=== PATIENT | female | born 1955 | race Caucasian/White ===

== ENCOUNTER → 2024-09-03 11:57 | Outpatient (REF) | payer MEDICARE, OTHER, SELFPAY | LOC: HWWDC 11:57 | PROVIDERS: ATTENDING PHYSICIAN Family Medicine | DX: Z12.31 Encounter for screening mammogram for malignant neoplasm of breast (principal) | CPT/HCPCS: 77063; 77067 ==

== ENCOUNTER → 2025-05-26 09:49 | Outpatient (REF) | payer MEDICARE, OTHER, SELFPAY | LOC: PAVMRI 09:49 | PROVIDERS: ATTENDING PHYSICIAN Physician Assistant | DX: M25.562 Pain in left knee (principal) | CPT/HCPCS: 73721 ==

== ENCOUNTER 2025-06-06 06:25 | Day surgery (SDC) | payer MEDICARE, OTHER, SELFPAY ==
[2025-06-06] VITALS (7 sets, daily range): BP systolic 100–134; BP diastolic 58–79; BMI 29.0
[2025-06-06] MEDS: NORMOSOL-R/PLASMALYTE-A 1000 IV (11:45)
[2025-06-06] MEDS: CELEBREX 200 MG PO (11:58)
[2025-06-06] MEDS: TYLENOL 1000 MG PO (11:59)
== END 2025-06-06 16:41 | disposition home or self-care (01) ==
LOC: SDS 06:25
PROVIDERS: ATTENDING PHYSICIAN Orthopaedic Surgery
DX: S83.282A Other tear of lateral meniscus, current injury, left knee, initial encounter (principal); X58.XXXA Exposure to other specified factors, initial encounter; M94.262 Chondromalacia, left knee
CPT/HCPCS: 29881

== ENCOUNTER 2025-06-09 20:48 | Inpatient (IN) | payer MEDICARE, OTHER, SELFPAY ==
[2025-06-09] VITALS (11 sets, daily range): BP systolic 131–164; BP diastolic 71–88; BMI 29.8; BMI 28.8
[2025-06-09 13:22] LABS: Hematocrit 37.6 % (37.0-47.0); Hemoglobin 12.5 g/dL (12.0-16.0); Mean Corp Hgb Conc. 33.2 g/dL (33.0-37.0); Mean Corpuscular Volume 91.7 fL (81.0-99.0); Nucleated Red Blood Cells % 0 %; Platelet Count 203 10^3/uL (130-400); Red Cell Dist. Width 13.0 % (11.5-14.5)
[2025-06-09 13:46] LABS: ALT (SGPT) 350 U/L (0-35); AST (SGOT) 310 U/L (14-36); Albumin 4.0 g/dl (3.5-5.0); Alkaline Phosphatase 121 U/L (38-126); Blood Urea Nitrogen 16 mg/dl (7-17); Calcium 9.4 mg/dl (8.4-10.2); Carbon Dioxide 28 mmol/L (22-30); Chloride 104 mmol/L (98-107); Estimated Creatinine Clearance 70 ml/min; Glucose 95 mg/dl (70-99); Lipase 45 U/L (23-300); Potassium 3.7 mmol/L (3.5-5.1); Sodium 139 mmol/L (135-145); Total Protein 6.6 g/dl (6.3-8.2); eGFR > 60.00
--- NOTE | 2025-06-09 13:50 | ED.GENMED ---
History of Present Illness
<Rod Airas PA-C - Last Filed: 06/10/25 11:01>
General
Chief Complaint: Breathing Problem
Time Seen by Provider: 06/09/25 12:34
History of Present Illness
History of Present Illness:
69-year-old female presents the emergency department for evaluation of abdominal distention and pain that increases with deep breathing for the past day. She states she underwent left knee arthroscopic surgery on Monday and feels as though the
symptoms have progressed since that time. She also underwent a sigmoid endoscopy 6 days ago but did not have any abdominal pain thereafter. She denies any fevers or chills. The abdominal pain is generalized but worse in the upper abdomen with
deep breathing. She feels those short of breath. No leg swelling or calf cramping.
Review of Systems
<Rod Arias PA-C - Last Filed: 06/10/25 11:01>
Review of Systems
Allergies reviewed?: Yes
All Other Systems: ROS reviewed and negative except as documented in HPI and ROS
Phy Exam
<Rod Arias PA-C - Last Filed: 06/10/25 11:01>
Physical Exam
Physical Exam:
GEN: Well appearing, NAD, WDWN
HEENT: Oral mucosa moist, no scleral icterus
Cardiac: Regular rate
Lung: No respiratory distress, no tachypnea, lungs clear to auscultation bilaterally
Abdomen: Protuberant, generally tender worse in the upper abdominal ruiz, no rigidity
MSK: No gross deformity or injuries
Skin: Good color, no pallor or jaundice, no rashes
Neuro: AO x3, moves all extremities freely
Psych: Calm, cooperative
Scores
<JONA Cornell Last Filed: 06/09/25 19:41>
Heart Failure Risk
Heart Failure Risk Score: Not Applicable
Course
<JONA Melo Last Filed: 06/10/25 11:01>
Orders/Labs/Results
Orders:
Orders
06/09/25 12:13
Electrocardiogram (*1) Urgent
Reason for Study: Shortness of Breath
EKG- Treatment ONCE
06/09/25 13:02
CR Chest - 2 Views Urgent
Comment:
Reason For Exam: SOB
06/09/25 13:11
Complete Blood Count/With Diff Urgent
Comprehensive Metabolic Panel Urgent
Lactic Acid Urgent
Lipase Urgent
06/09/25 14:20
CT Pe/abd/pel W Urgent
Comment:
Reason For Exam: pleuritic chest/abd pain, pleural effusion
06/09/25 Dinner
NPO
Allow oral meds: Yes
Allow clear liquids: No
NPO with Ice Chips: No
06/09/25 16:49
US Abdomen Complete/Upper Urgent
Comment:
Reason For Exam: elevated LFTs;
06/09/25 17:01
0.9% Sodium Chloride 500 ml [Nss] 500 ml IV BOLUS
HYDROmorphone [Dilaudid] 1 mg IV NOW STA
06/09/25 17:40
Acetaminophen [Tylenol] 650 mg PO NOW STA
06/09/25 20:07
Ampicillin/Sulbactam 3 G [Unasyn] 3 gm 0.9% Sodium Chloride 100 ml [Nss] 100 ml IV NOW
06/09/25 20:21
Admit/Transfer Patient As Directed
Co-Sign Provider:
Level of Care: Inpatient admission
Assign to:: Medical/Surgical
Physician / Group: dion rosado
Diagnosis: acute transaminitis conc retained stone vs choleycystitis, mild colitis
Reason for Hospitalization: acute transaminitis conc retained stone vs choleycystitis, mild colitis
Expected length of stay greater than two midnights?: Yes
ELOS- Estimated Length of Stay in days: 3
I certify the patient meets the requirements for IP care: Yes
06/09/25 20:22
Code Status As Directed
Resuscitation Status: Full Code
06/09/25 20:25
PRN Pain Medication Management As Directed
May give lesser potent ordered pain med per pt: Yes
preference::
Protocol:: Medication orders for pain may be administered in a
manner that supports deferring to patient preference
when the pt is:
- Requesting an ordered lesser potent pain medication.
Least to most potent pain medications are defined
as: acetaminophen < NSAID < tramadol < opioids
(morphine, oxycodone, hydromorphone).
- Requesting a lesser dose of the same medication IF
ORDERED.
- Requesting a less intrusive route of administration
if both routes are prescribed by the provider (PO <
IV).
06/09/25 20:26
SURGICAL CONSULT Routine
Consulting Provider: Gino Angel
Was physician already notified: Yes
Reason for consult: acute transminitis biliary sludge
06/09/25 21:54
0.9% Sodium Chloride 1000 ml [Nss] 1,000 ml IV 80 mls/hr
Acetaminophen [Tylenol] 650 mg PO Q6HPRN PRN
HYDROmorphone [Dilaudid] 1 mg IV Q4HPRN PRN
Ondansetron Injectable [Zofran] 4 mg IV Q6HPRN PRN
06/09/25 21:54
Activity As Directed
Activity Level: As Tolerated
Vital Signs As Directed
Frequency: Per unit guidelines
DX Deep Vein Thrombosis Video Routine
06/09/25 22:00
Rosuvastatin Calcium [Crestor] 10 mg PO HS
06/10/25 02:00
Piperacillin/Tazo 3.375 Gram [Zosyn] 3.375 gram in 50 ml IV Q6H
06/10/25 06:00
MR Mrcp Without IN AM
Comment: incude MRI abdomen
Reason For Exam: acute transmintitis
OK for patient to be off Cardiac Monitoring for MRI: Yes
Recent pill cam endoscopy?: No
Pacemaker/Defibrillator?: No
Levothyroxine [Synthroid] 75 mcg PO DAILY @ 0600
06/10/25 06:06
Cardiovascular Evaluation IN AM
Complete Blood Count/With Diff IN AM
Comprehensive Metabolic Panel IN AM
06/10/25 08:00
Heparin 5,000 units SC Q12
Lisinopril [Zestril] 20 mg PO DAILY
Pantoprazole [Protonix IV] 40 mg IV DAILY
06/11/25 06:00
Complete Blood Count/With Diff IN AM
Comprehensive Metabolic Panel IN AM
06/12/25 06:00
Complete Blood Count/With Diff IN AM
Comprehensive Metabolic Panel IN AM
Abnormal Lab Results
06/09/25
13:11
RBC 4.10 L 10^6/uL
(4.20-5.40)
Absolute Lymphs (auto) 1.0 L 10^3/uL
(1.2-3.4)
Neutrophils % 77.7 H %
(42.2-75.2)
Lymphocytes % 16.4 L %
(20.5-51.1)
AST 310 H U/L
(14-36)
ALT 350 H U/L
(0-35)
06/09/25 13:11
06/09/25 13:11
Vital Signs
Initial and Last Documented VS:
Initial Vital Signs
Temp Pulse Resp BP Pulse Ox
99.1 F 86 16 151/85 98
06/09/25 12:11 06/09/25 12:11 06/09/25 12:11 06/09/25 12:11 06/09/25 12:11
Last Documented Vital Signs
Temp Pulse Resp BP Pulse Ox
99.0 F 79 18 126/76 95
06/10/25 07:25 06/10/25 07:25 06/10/25 07:25 06/10/25 07:25 06/10/25 07:25
<Vesta Jimenez PA-C - Last Filed: 06/09/25 19:41>
Orders/Labs/Results
Orders:
Orders
06/09/25 12:13
Electrocardiogram (*1) Urgent
Reason for Study: Shortness of Breath
EKG- Treatment ONCE
06/09/25 13:02
CR Chest - 2 Views Urgent
Comment:
Reason For Exam: SOB
06/09/25 13:11
Complete Blood Count/With Diff Urgent
Comprehensive Metabolic Panel Urgent
Lactic Acid Urgent
Lipase Urgent
06/09/25 14:20
CT Pe/abd/pel W Urgent
Comment:
Reason For Exam: pleuritic chest/abd pain, pleural effusion
06/09/25 Dinner
NPO
Allow oral meds: Yes
Allow clear liquids: No
NPO with Ice Chips: No
06/09/25 16:49
US Abdomen Complete/Upper Urgent
Comment:
Reason For Exam: elevated LFTs;
06/09/25 17:01
0.9% Sodium Chloride 500 ml [Nss] 500 ml IV BOLUS
HYDROmorphone [Dilaudid] 1 mg IV NOW STA
06/09/25 17:40
Acetaminophen [Tylenol] 650 mg PO NOW STA
06/09/25 20:07
Ampicillin/Sulbactam 3 G [Unasyn] 3 gm 0.9% Sodium Chloride 100 ml [Nss] 100 ml IV NOW
06/09/25 20:21
Admit/Transfer Patient As Directed
Co-Sign Provider:
Level of Care: Inpatient admission
Assign to:: Medical/Surgical
Physician / Group: dion rosado
Diagnosis: acute transaminitis conc retained stone vs choleycystitis, mild colitis
Reason for Hospitalization: acute transaminitis conc retained stone vs choleycystitis, mild colitis
Expected length of stay greater than two midnights?: Yes
ELOS- Estimated Length of Stay in days: 3
I certify the patient meets the requirements for IP care: Yes
06/09/25 20:22
Code Status As Directed
Resuscitation Status: Full Code
06/09/25 20:25
PRN Pain Medication Management As Directed
May give lesser potent ordered pain med per pt: Yes
preference::
Protocol:: Medication orders for pain may be administered in a
manner that supports deferring to patient preference
when the pt is:
- Requesting an ordered lesser potent pain medication.
Least to most potent pain medications are defined
as: acetaminophen < NSAID < tramadol < opioids
(morphine, oxycodone, hydromorphone).
- Requesting a lesser dose of the same medication IF
ORDERED.
- Requesting a less intrusive route of administration
if both routes are prescribed by the provider (PO <
IV).
06/09/25 20:26
SURGICAL CONSULT Routine
Consulting Provider: Gino Angel
Was physician already notified: Yes
Reason for consult: acute transminitis biliary sludge
06/09/25 21:54
0.9% Sodium Chloride 1000 ml [Nss] 1,000 ml IV 80 mls/hr
Acetaminophen [Tylenol] 650 mg PO Q6HPRN PRN
HYDROmorphone [Dilaudid] 1 mg IV Q4HPRN PRN
Ondansetron Injectable [Zofran] 4 mg IV Q6HPRN PRN
06/09/25 21:54
Activity As Directed
Activity Level: As Tolerated
Vital Signs As Directed
Frequency: Per unit guidelines
DX Deep Vein Thrombosis Video Routine
06/09/25 22:00
Rosuvastatin Calcium [Crestor] 10 mg PO HS
06/10/25 02:00
Piperacillin/Tazo 3.375 Gram [Zosyn] 3.375 gram in 50 ml IV Q6H
06/10/25 06:00
MR Mrcp Without IN AM
Comment: incude MRI abdomen
Reason For Exam: acute transmintitis
OK for patient to be off Cardiac Monitoring for MRI: Yes
Recent pill cam endoscopy?: No
Pacemaker/Defibrillator?: No
Levothyroxine [Synthroid] 75 mcg PO DAILY @ 0600
06/10/25 06:06
Cardiovascular Evaluation IN AM
Complete Blood Count/With Diff IN AM
Comprehensive Metabolic Panel IN AM
06/10/25 08:00
Heparin 5,000 units SC Q12
Lisinopril [Zestril] 20 mg PO DAILY
Pantoprazole [Protonix IV] 40 mg IV DAILY
06/11/25 06:00
Complete Blood Count/With Diff IN AM
Comprehensive Metabolic Panel IN AM
06/12/25 06:00
Complete Blood Count/With Diff IN AM
Comprehensive Metabolic Panel IN AM
Abnormal Lab Results
06/09/25
13:11
RBC 4.10 L 10^6/uL
(4.20-5.40)
Absolute Lymphs (auto) 1.0 L 10^3/uL
(1.2-3.4)
Neutrophils % 77.7 H %
(42.2-75.2)
Lymphocytes % 16.4 L %
(20.5-51.1)
AST 310 H U/L
(14-36)
ALT 350 H U/L
(0-35)
06/09/25 13:11
06/09/25 13:11
Vital Signs
Initial and Last Documented VS:
Initial Vital Signs
Temp Pulse Resp BP Pulse Ox
99.1 F 86 16 151/85 98
06/09/25 12:11 06/09/25 12:11 06/09/25 12:11 06/09/25 12:11 06/09/25 12:11
Last Documented Vital Signs
Temp Pulse Resp BP Pulse Ox
99.0 F 79 18 126/76 95
06/10/25 07:25 06/10/25 07:25 06/10/25 07:25 06/10/25 07:25 06/10/25 07:25
<Rod Arias PA-C - Last Filed: 06/10/25 11:01>
MDM/Problems Addressed
MDM/Problems Addressed:
69-year-old female presents with generalized abdominal pain that is pleuritic in nature. She is found to have right lower lung crackles on exam prompting chest x-ray which revealed a small pleural effusion. She is also noted to have mild
transaminitis with uncertain baseline due to lack of prior labs within our system. Given multiple recent procedures resulting in her undergoing anesthesia we will rule out pulmonary embolism with CT and then obtain subsequent abdomen pelvis
follow-through to evaluate for intra-abdominal process causing her symptoms. If unremarkable would anticipate need for ultrasound to rule out cholecystitis if no other pathology is found. Will sign out to Leatha Jimenez PA-C pending imaging
<Rod Arias PA-C - Last Filed: 06/10/25 11:01>
*Pulse Oximetry
SaO2: 97
Oxygen Mode of Delivery: Room air
<Vesta Jimenez PA-C - Last Filed: 06/09/25 19:41>
*Pulse Oximetry
Patient hypoxic: no (98)
*Critical Care Note
Total Time (30-74mins, 75-104mins- exclusive of procedures): Not Applicable
<Vesta Jimenez PA-C - Last Filed: 06/09/25 19:41>
Update Note
Update Note:
1700-
Received patient in signout from [facility] pending CT scan. There was findings of mild colitis but otherwise only a small pleural effusion and no PE. I examined the patient myself and she is complaining of worsening abdominal pain specifically in the
right upper quadrant and felt warm and had a temperature of 100.3. I gave her IV pain medication and ultrasound of the abdomen suspicious for cholecystitis given her transaminitis. She does have biliary sludge without obvious cholecystitis changes
however given her ongoing pain and nausea with eating I think she should be observed overnight. Will empirically cover with IV antibiotics. She has tolerated amoxicillin in the past even though she has a penicillin allergy which was only a rash as
a child. I will try Unasyn. Patient is aware that if she has any reaction to let someone know.
Surgery Dr. angel made aware of the patient as well
ED Attending Note
<Rod Arias PA-C - Last Filed: 06/10/25 11:01>
-
Portions of this chart may have been created with voice recognition software.� Occasional wrong word or��sound alike� substitutions may have occurred due to the inherent limitations of voice recognition software.
Discharge Plan
Departure
Patient Disposition: Admit
Date of Disposition: 06/09/25
Time of Disposition: 19:01
Admit to: Med/Surg
Presentation/result/management discussed w/ accepting MD/DO: Hospitalist
Condition: Fair
Covid-19: Not Applicable
Discharge Problem:
Colitis, Biliary sludge
Interventions
Interventions:
*Risk Screen - Suicide Last Done: 06/09/25 12:13
*Neglect/Abuse Screening Last Done: 06/09/25 12:13
*ED COVID-19 Vaccine History Last Done: 06/09/25 22:50
*Nursing Disposition Last Done: 06/09/25 21:47
ED- Cardiac Assessment Last Done: 06/09/25 13:17
ED- Pulmonary Assessment Last Done: 06/09/25 13:17
Discharge Date and Time
Discharge Date/Time: 06/09/25 21:48
[2025-06-09] MEDS: NSS 500 IV (17:14)
[2025-06-09] MEDS: DILAUDID 1 MG IV ×2 (17:15→23:45)
--- NOTE | 2025-06-09 19:44 | HPS.HSE ---
Addendum entered and electronically signed by Jonnie Sood MD 06/09/25 20:23:
see update note for addendum
Original Note:
Family Physician
-
Family Physician: Misti Reyes
Chief Complaint
-
Upper abdominal pain increased with inspiration
History of Present Illness
69-year-old female states she had half colon prep with flex sig on Monday 6 days ago which was benign followed by left knee meniscus repair on Monday 4 days ago. She has been alternating Tylenol and Motrin 600 mg every 6 hours so far as taken 10
doses, Along with oxycodone at night. On Monday she started with upper abdominal pain through to her back and increased with taking a deep breath followed by generalized abdominal pain. She reports last night despite oxycodone she had extreme
pain and nausea prompting her to come to the hospital today for evaluation. She had abdominal ultrasound showing biliary sludge CT abdomen pelvis showing mild colitis and labs showing acute transaminitis with a low-grade temp of 100.3 F. She has
family history mother and sister acute cholecystitis status post resection, father history pancreatic cancer age 54 and personal history of sigmoid cancer status post resection and chemotherapy in 2017
Past medical history hypertension, sigmoid cancer s/p resection and chemotherapy 2017, HLD, hypothyroidism status post total thyroidectomy, psoriasis, melanoma
Medical History
Past Medical History
Past Medical History: Reports Other
Additional Past Medical History:
hypertension
sigmoid cancer s/p resection and chemotherapy 2016
HLD
hypothyroidism status post total thyroidectomy
psoriasis
melanoma back
Past Surgical History: Reports Other
Additional Past Surgical History:
sigmoid cancer s/p resection and chemotherapy 2016
Flex sig 06/03/2025
Left knee meniscus repair 06/06/2025
Left axillary lymph nodes removal
Melanoma removal from back
Colon resection secondary to colon cancer
Incisional hernia repair
Port insertion with removal
Total thyroidectomy
Social History
Tobacco: Non-smoker
Alcohol: Occasional (10 times a month)
Personal: Single
Living: Alone
Employment: Retired
Family History
Family History: Other (Mother and sister cholecystitis, father pancreatic cancer age 54)
Allergies / Home Medications
Allergies reflects when Allergies were last updated in [employer].
Home Medications with original date entered in [employer]
Allergy/Medication List:
Allergies
Allergy/AdvReac Type Severity Reaction Status Date / Time
Penicillins Allergy Rash as a Verified 06/06/25 16:16
child
Home Medications
Medical Marijuana 1 cap PO HS 05/30/25
aspirin 81 mg tablet 81 mg PO HS 05/30/25
lisinopril 20 mg-hydrochlorothiazide 25 mg tablet 1 tab PO HS 05/30/25
loratadine 10 mg tablet (Claritin) 10 mg PO HS 05/30/25
rosuvastatin 10 mg tablet (Crestor) 10 mg PO HS 05/30/25
levothyroxine 75 mcg tablet (Synthroid) 75 mcg PO DAILY 06/09/25
Review of Systems
-
History Source: Patient and Other (Friends at bedside)
A 12 point ROS was completed and negative except as noted: Yes
Constitutional: Reports Fever (100.3 F); Denies Chills
EENT: Denies Sore Throat or Runny Nose
Respiratory: Denies Cough or Trouble Breathing
Cardiac: Denies Chest Pain, Diaphoresis, Palpitations or Syncope
Abdomen/GI: Reports Abdominal Pain (Upper abdomen) and Nausea; Denies Vomiting, Diarrhea, Constipated, Bloody Stools or Black Stools
: Denies Dysuria, Frequency, Flank Pain, Incontinence, Difficulty Voiding or Urgency
Musculoskeletal: Reports Joint Pain (Left knee status post meniscus repair)
Skin: Denies Itching or Rash
Neurological: Denies Dizzy, Headache or Weakness
Endocrine: Reports No Symptoms
Hematologic/Lymphatic: Reports No Symptoms
Psych: Reports Calm
Physical Exam
Vital Signs
Vital Signs
Temp Pulse Resp BP Pulse Ox
100.3 F 87 16 149/84 97
06/09/25 17:18 06/09/25 16:12 06/09/25 16:12 06/09/25 16:11 06/09/25 16:12
Physical Exam
General: Comfortable, Conversant and Fever; No Pain or Chills
HEENT: NormoCephalic, Anicteric, Moist mucous membranes, [place] Conjunctivae and No Ptosis
Respiratory: Clear; No Wheezes, Rales or Rhonchi
Cardiac: S1/S2 and Regular Rhythm; No Murmur, Rub, Gallop or Peripheral Edema
Breast: Deferred by me
GI: Soft, Normal Bowel Sounds, Tender (Epigastric left and right upper quadrant), Distended (Slight) and No Hepatosplenomegaly
Rectal: Deferred by Provider
Genito-urinary: Deferred by me
Musculoskeletal: No Clubbing, No Cyanosis, No Edema and Other (Left knee status post meniscus repair site intact)
Skin: Warm and Dry; No Rash or Jaundice
Neuro: AO x 3, No Motor Deficits, Nonfocal/grossly intact, Cranial Nerves Intact and No Sensory Deficits; No Slurred Speech, Facial Droop, Tremors or Sedated
Psych: Calm
Laboratory Results
-
06/09/25 13:11
06/09/25 13:11
Laboratory Results
Lactic Acid 0.8 mmol/L (0.7-2.0) 06/09/25 13:11
Total Bilirubin 0.8 mg/dl (0.2-1.3) 06/09/25 13:11
AST 310 U/L (14-36) H 06/09/25 13:11
ALT 350 U/L (0-35) H 06/09/25 13:11
Alkaline Phosphatase 121 U/L (38-126) 06/09/25 13:11
Lipase 45 U/L (23-300) 06/09/25 13:11
Data Reviewed
-
CT Scan: Report Reviewed by me
Lab Data: Labs Reviewed by me
Impression/Plan
-
Impression/plan:
Admit to MedSurg
#Acute transaminitis concern for possible retained stone
Temp 100.3 F
AST 310, ALT 350
- Consult surgery-Case discussed with Dr. Sánchez
- IV Zosyn
- N.p.o.
-IV NSS
-MRCP/MRI abdomen
- Follow CBC, CMP
Abdominal ultrasound: Likely biliary sludge. No acute cholecystitis
#Acute colitis pericolonic likely secondary to recent flex sig with prep 06/03/2025
#Mild stool burden
-IV Zosyn
CT chest abdomen pelvis with contrast:
1. No central pulmonary embolus.
2. Small bilateral pleural effusions with adjacent atelectasis.
3. There is mild pericolonic stranding suggestive of mild colitis. Mild colonic stool burden.
4. Mild chronic compression deformity of the L3 vertebral body.
#Sigmoid cancer status post resection and chemotherapy in 2017
- Had completed in [place]
#Status post left knee meniscus repair 06/06/2025
- Patient has been alternating Tylenol Motrin every 6 hours took oxycodone at bedtime only had recent 6 tab fill
HTN�benign
BP 149/84
HLD
Check lipid profile
Hypothyroidism status post total thyroidectomy
Continue levothyroxine
Other PMH:
Psoriasis
Melanoma status post removal from back
DVT prophylaxis
Subcu heparin
Full code
--- NOTE | 2025-06-09 20:23 | W.PN.UPDATE ---
Update Note
Progress Note Update
I saw and examined the patient.
The [facility] [place] note was reviewed and I agree with the note.
Comment: 69 y/o F hx of HTN, Hypothyroidism, sigmoid cancer s/p resection 2016 presents to ER for 4 day history of abd pain, upper, 7/10 and radiating to the back - worse with deep breaths. She used oxycodone last evening for pain relief (prescribe
for recent L knee meniscus repair 4 days prior)). She later developed nausea. Today in ER with fever 100.3
ER workup concerning for colitis and also transaminitis with possible sludge on US. Of note, patient had a flex sig 6 days ago for surveillance with hx of sigmoid cancer.
Exam:
General: Comfortable, Conversant and Fever; No Pain or Chills
HEENT: Normocephalic, Anicteric, Moist mucous membranes, [place] Conjunctivae and No Ptosis
Respiratory: Clear; No Wheezes, Rales or Rhonchi
Cardiac: S1/S2 and Regular Rhythm; No Murmur, Rub, Gallop or Peripheral Edema
Breast: Deferred by me
GI: Soft, Normal Bowel Sounds, Tender (Epigastric left and right upper quadrant), Distended (Slight) and No Hepatosplenomegaly
Rectal: Deferred by Provider
Genito-urinary: Deferred by me
Musculoskeletal: No Clubbing, No Cyanosis, No Edema and Other (Left knee status post meniscus repair site intact)
Skin: Warm and Dry; No Rash or Jaundice
Neuro: AO x 3, No Motor Deficits, Nonfocal/grossly intact, Cranial Nerves Intact and No Sensory Deficits; No Slurred Speech, Facial Droop, Tremors or Sedated
Psych: Calm
Assessment: Colitis on CT although could be related to recent prep or procedure (flex sig 6 days ago). RUQ pain with transaminitis and also fevers - will empirically cover with Zosyn. general surgery evaluation. IV PPI. Pain control and
anti-emetics. MRI Abdomen/MRCP w contrast.
[2025-06-09] MEDS: UNASYN IV (20:37)
[2025-06-09] MEDS: CRESTOR 10 MG PO (23:45)
[2025-06-09] MEDS: NSS 1000 IV (23:45)
--- NOTE | 2025-06-10 01:05 | PTCARENOTE ---
Pt received from ED [id number] able to make her needs known. Pt c/o pain on prn pain meds as needed.Pt oriented to room & call moe in reach.
[2025-06-10] MEDS: ZOSYN 50 IV ×4 (02:59→19:52)
[2025-06-10] MEDS: SYNTHROID 75 MCG PO (05:55)
[2025-06-10 07:25] VITALS: BP 126/76
[2025-06-10 07:59] LABS: Hematocrit 35.7 % (37.0-47.0); Hemoglobin 11.8 g/dL (12.0-16.0); Mean Corp Hgb Conc. 33.1 g/dL (33.0-37.0); Mean Corpuscular Volume 91.5 fL (81.0-99.0); Nucleated Red Blood Cells % 0 %; Platelet Count 204 10^3/uL (130-400); Red Cell Dist. Width 12.8 % (11.5-14.5)
--- NOTE | 2025-06-10 08:06 | CON.GS ---
Addendum entered and electronically signed by Gino Sánchez MD 06/10/25 14:53:
MRI results were reviewed and relayed to the patient. All imaging including her ultrasound, CT scan, and MRI have not demonstrated any evidence of cholecystitis. She does have some mild dilation of her gallbladder, which may be related to lack of
oral intake over the last several days. She certainly could have passed some small amount of sludge leading to her LFT elevations and symptoms. Differential also includes gastritis or enteritis as seen by mesenteric inflammation on her CT and MRI
imaging. Currently her pain is mildly improved, and located more around the epigastrium and umbilicus. GI consult noted. Would await further workup from them. No plans for cholecystectomy at this time. Okay for a low-fat diet from a general
surgery standpoint.
Original Note:
Medical History
-
Chief Complaint: Upper abdominal pain
History of Present Illness:
Patient is a 69 yo F with a PMH of HTN, HLD, psoriasis, melanoma s/p excision with LEFT axillary lymphadenectomy, s/p total thyroidectomy, colon cancer s/p partial colectomy c/b incisional hernia s/p open incisional hernia repair with mesh, and most
recently s/p LEFT knee arthroscopy on 06/06/[address] Ramsey. Ms. Avina states that approximately 24 hours after her knee procedure she developed upper abdominal pain and discomfort. She describes a epigastric discomfort which radiates to her back
and is worse with deep inspiration. Her symptoms progressed and worsened on Monday prompting presentation to the ER on Monday. No clear association with oral intake. She has not had much oral intake over the past week due to a sigmoidoscopy as
well as her knee surgery. She denies any prior attacks of similar abdominal discomfort. She was taking 400 mg of Ibuprofen every 6 hours during her knee recovery and is on a baby Aspirin. No steroids or smoking history. She does have a prior
history of gastritis. Issues with constipation related to her bowel prep for her sigmoidectomy and recent orthopedic surgery with narcotic use. She denies any diarrhea or pale stools. No jaundice or tea colored urine. Family history notable for
a mother and sister postcholecystectomy as well as a father who from pancreatic cancer.
Past Medical History
Past Medical History: Cancer (Colon, s/p chemo), HTN, Hypercholesterolemia and Other (Psoriasis, melanoma)
Past Surgical History: Bowel Resection (Laparoscopic assisted colectomy for colon cancer) and Hernia Repair (Open incisional hernia repair with mesh in [place] years ago)
Social History
Tobacco: Non-Smoker
Alcohol: Occasional
Drug: None
Living: Alone
Employment: Retired
Family History
Family History: Other (Mother and sister postcholecystectomy, father pancreatic cancer)
Allergies / Home Medications
Allergy/AdvReac Type Severity Reaction Status Date / Time
Penicillins Allergy Rash as a Verified 06/06/25 16:16
child
�Medication �Instructions �Recorded �Confirmed �Type
Medical Marijuana 1 cap PO HS 05/30/25 06/09/25 History
aspirin 81 mg tablet 81 mg PO 05/30/25 06/09/25 History
lisinopril 20 1 tab PO HS 05/30/25 06/09/25 History
mg-hydrochlorothiazide 25 mg tablet
loratadine 10 mg tablet (Claritin) 10 mg PO HS 05/30/25 06/09/25 History
rosuvastatin 10 mg tablet (Crestor) 10 mg PO HS 05/30/25 06/09/25 History
levothyroxine 75 mcg tablet 75 mcg PO DAILY 06/09/25 06/09/25 History
(Synthroid)
Review of Systems
-
A 10 point review of systems was completed, and was negative except as per HPI.
Physical Exam
Vital Signs
Temp Pulse Resp BP Pulse Ox
98.5 F 74 16 131/71 95
06/09/25 23:41 06/09/25 23:41 06/09/25 23:41 06/09/25 23:41 06/09/25 23:41
06/09/25 06/10/25 06/11/25
06:59 06:59 06:59
Actual Weight 78.613 kg
Body Mass Index (BMI) 28.8
Lab Results
06/10/25 06:06
WBC 5.9 10^3/uL (4.8-10.8) 06/10/25 06:06
Hgb 11.8 g/dL (12.0-16.0) L 06/10/25 06:06
Hct 35.7 % (37.0-47.0) L 06/10/25 06:06
Plt Count 204 10^3/uL (130-400) 06/10/25 06:06
Abs Immat Gran (auto) 0.0 10^3/uL (0-0.05) 06/10/25 06:06
Neutrophils % 72.9 % (42.2-75.2) 06/10/25 06:06
Physical Exam
General: Well Developed, Well Nourished and No Apparent Distress
HEENT: Normocephalic and Anicteric
Respiratory: Non Labored Respirations
Cardiac: Regular Rhythm
GI: Soft, Non Distended, Tender (Mostly in the epigastrium, extending out to her RUQ and LUQ, negative Teague's sign) and Incisions (Lower midline well-healed)
Musculoskeletal: No Edema
Skin: Warm and Dry
Neuro: Nonfocal/Grossly Intact
Data Reviewed
-
CT Scan: Image Personally Visualized and interpreted and Report Reviewed by me
Ultrasound: Image Personally Visualized and interpreted and Report Reviewed by me
Labs: Labs Reviewed by me
Old Records: Reviewed
Assessment / Plan
-
Patient is a 69 yo F p/w upper abdominal pain
Differential includes hepatobiliary disease including cholecystitis or choledocholithiasis with likely sludge visualized on ultrasound imaging. Elevated LFTs would indicate that this is the most likely possibility. Repeat labs pending. MRI of the
abdomen pending. That being said, her lack of association of symptoms with with oral intake would argue against this diagnosis. Differential also includes gastritis or duodenitis especially given the more central aspect of her abdominal discomfort
combined with her recent surgical stresses and NSAID use (Ibuprofen and ASA). We briefly discussed surgical management for gallbladder disease to include a laparoscopic cholecystectomy, however, decision on this pending above-noted workup. We also
discussed potentially obtaining further workup of her gallbladder with a HIDA scan pending the above findings. All questions answered. Will follow-up on above noted work-up.
-- MRI abdomen
-- Repeat labs
-- Abx: Zosyn
-- GI: PPI
-- Will follow-up on the above
[2025-06-10 08:25] LABS: ALT (SGPT) 226 U/L (0-35); AST (SGOT) 106 U/L (14-36); Albumin 3.5 g/dl (3.5-5.0); Alkaline Phosphatase 101 U/L (38-126); Blood Urea Nitrogen 13 mg/dl (7-17); Calcium 8.6 mg/dl (8.4-10.2); Carbon Dioxide 24 mmol/L (22-30); Chloride 108 mmol/L (98-107); Estimated Creatinine Clearance 79 ml/min; Glucose 83 mg/dl (70-99); HDL Cholesterol 52 mg/dl; LDL Cholesterol, Calculated 66 mg/dl; Potassium 3.7 mmol/L (3.5-5.1); Sodium 138 mmol/L (135-145); Total Protein 5.9 g/dl (6.3-8.2); Very Low Density Lipoprotein 20 mg/dl (0-30); eGFR > 60.00
[2025-06-10] MEDS: PROTONIX IV 40 MG IV ×2 (08:30→19:52)
[2025-06-10] MEDS: NSS (PRESERVATIVE FREE) 10 ML IV ×2 (08:30→19:52)
[2025-06-10] MEDS: HEPARIN 5000 UNITS SC (08:30)
[2025-06-10] MEDS: ZESTRIL 20 MG PO (08:31)
[2025-06-10] MEDS: TYLENOL 650 MG PO (08:46)
[2025-06-10] MEDS: DILAUDID 0.5 MG IV ×2 (08:56→13:44)
--- NOTE | 2025-06-10 09:37 | W.PN.HOSP.TC ---
Today's Communication/Plan
-
Await MRCP
Assessment / Plan
Assessment / Plan
Gen-AAOx3, NAD
HEENT-NC, AT, anicteric, clear oral mm
Neck-supple
CV-reg, no M, +S1/S2
Lungs-clear B/L
Abd-soft, NT, ND
Ext-no edema
Musculoskeletal-no cyanosis, clubbing
Skin-warm and dry
Neuro-grossly non-focal
Psych-calm, cooperative
Abdominal pain -presentation with epigastric pain, transaminitis, fever and chills. Possible biliary sepsis, although WBC count normal. Unfortunately blood cultures not sent. Continue empiric Zosyn for now.
MRCP pending. Appreciate general surgery input. Transaminases improving. Hold Crestor.
If MRCP normal, consult GI for EGD. Was taking ibuprofen for her knee arthritis.
Essential hypertension -stable.
History of colon cancer -involving sigmoid colon, resected and treated with chemotherapy 2016.
Hypothyroidism -with history of total thyroidectomy. Continue levothyroxine.
Hyperlipidemia -hold Crestor for elevated transaminases.
Hx Melanoma -on her back, resected.
Psoriasis
Full code
Anticipated Discharge: 24 - 48 hours
Subjective/Interval History
-
Date of Service: June 10, 2025
Patient seen and examined. Abdominal pain improved after IV Dilaudid.
Objective Data
-
Labs:
Laboratory Results
06/10/25
06:06
WBC 5.9
Hgb 11.8 L
Hct 35.7 L
Plt Count 204
Sodium 138
Potassium 3.7
Chloride 108 H
Carbon Dioxide 24
BUN 13
Creatinine 0.7
Glucose 83
Calcium 8.6
Total Bilirubin 0.9
AST 106 H
ALT 226 H
Alkaline Phosphatase 101
Vital Signs:
Vital Signs
Temp Pulse Resp BP Pulse Ox
99.0 F 79 18 126/76 95
06/10/25 07:25 06/10/25 07:25 06/10/25 07:25 06/10/25 07:25 06/10/25 07:25
I&O
06/09/25 06/10/25 06/11/25
06:59 06:59 06:59
Intake Total 350 / 350
Balance 350 / 350
Review of Systems
-
History Source: Patient
All other systems: Reviewed and negative
[2025-06-10] MEDS: LR 1000 IV (11:08)
--- NOTE | 2025-06-10 11:48 | PTCARENOTE ---
Pt is off the floor at this time for MRI.
--- NOTE | 2025-06-10 15:15 | CM ---
Alert awake oriented patient who lives alone in a 1 story home with 1 step to enter. She is independent in activates of daily living.She does drive .No adaptive devices.Offered VN she declined need.Family will kev epstein home at ok.
No VN in past . No SNF hx
[facility]
PCP Dr Reyes
PLAN Home with no needs
[2025-06-10 15:32] VITALS: BP 141/64
[2025-06-10] MEDS: DULCOLAX 10 MG PO (17:20)
--- NOTE | 2025-06-10 17:35 | CON.GI ---
Addendum entered and electronically signed by Maribel Matos MD 06/10/25 18:38:
I saw and examined the patient.
The W[employer]PROO[employer] HELPER or PA's note was reviewed and I agree with the note.
Comment: 69-year-old female with history of colon cancer status post sigmoid resection and chemo in 2017, recent left knee arthroscopy 06/06 presenting with complaints of upper abdominal discomfort starting 1 day postop after left knee arthroscopy.
Describes it as pain when she takes a deep breath, has been on liquid diet since after the arthroscopy, no previous similar episodes. Some nausea but no vomiting. No heartburn or trouble swallowing. Normal bowel movement pattern is 1 formed stool
a day. She follows up with [facility] for history of colon cancer and reports having flexible sigmoidoscopy a week ago Monday, unremarkable study as per patient. No bowel movement since after the flexible sigmoidoscopy, she has been
taking Motrin at least twice a week and since after the arthroscopy, she has been taking 2 Motrin every 6 hours, to 500 mg Tylenol every 6 hours as well. She has been on narcotics since last Monday after the left knee arthroscopy.
In the emergency room, CBC were normal range, CMP showed AST of 310 and ALT of 350, down to 106 and 226 respectively, other LFTs in normal limits. No other LFTs to compare this to.
CT scan of the abdomen and pelvis with IV contrast only showing mild pericolonic stranding suggesting mild colitis, mild colonic stool burden noted but otherwise unremarkable study, no PE noted.
Abdominal ultrasound showing likely biliary sludge without acute cholecystitis and mild hepatic steatosis.
MRI of the abdomen without contrast with MRCP showing small bilateral pleural effusions, small amount of ascites in the visualized abdomen, gallbladder slightly distended with no stones, no acute cholecystitis or biliary or pancreatic ductal
dilation.
- Abdominal discomfort which is worse with taking a deep breath, normal CBC, elevated transaminases but abdominal imaging essentially unremarkable
Given recent NSAID and aspirin use, agree with pantoprazole 40 mg IV twice daily
Normal CBC and BUN without any evidence of overt bleeding
Okay for clear liquid diet, will advance as tolerated.
Given no bowel movement at least in the last 1 week and recent narcotic use, part of the abdominal discomfort could be related to constipation.
Hold off on narcotics as she is getting it for abdominal pain only, not for knee pain
Will give her MiraLAX 1 capful twice a day and Senokot daily to see if it helps her evacuate her bowels and if that helps with relieving her abdominal discomfort.
-
Elevated LFTs of unclear etiology
She did have recent procedure, received antibiotics, cannot rule out intraprocedural hemodynamic changes causing this elevation
Imaging of the liver essentially unremarkable except fatty liver, we do not know her baseline LFTs
Given they are trending down, will continue to monitor, will check hepatitis B/C serologies
Will follow-up on the above testing
Original Note:
Consultation
-
Date/Time Consultation Requested: 06/10/25 4264
Date/Time Consultation Performed: 06/10/25 7405
Requesting Provider: Dr. Charles
Performing Provider: Dr. Matos/HARESH Andrade
Reason for Consultation: abd pain
Medical History
Chief Complaint / HPI
Chief Complaint: abd pain
History of Present Illness:
69-year-old female with past medical history of hypothyroidism status post total thyroidectomy, psoriasis, melanoma (left axillary lymph node resection), hypertension, colon cancer diagnosed 2017 status post sigmoid resection and chemotherapy,
constipation, incisional hernia repair, osteoarthritis with left knee arthroscopy 06/06/2025 who presents to the emergency room with upper abdominal discomfort worse with taking a deep breath. We are asked to evaluate for the same. The patient
states that she had a flexible sigmoidoscopy with her doctors at [facility] 1 week ago. She states she was prepped in the usual fashion with a 'half colon prep of MiraLAX, Dulcolax and 2 enemas'. She states that she was running clear
brown liquid. She states she was told that her sigmoidoscopy was 'normal'. She usually has Yadkin stool scale #1 type bowel movements on a daily basis so was told to start Colace after her planned arthroscopy. She states that on Monday and
Monday she resumed a solid diet however was not eating much. She states that she ate a 'wrap as well as some vegetables'. She was on a clear liquid diet on for her anticipated procedure on Monday. Prior to this she was taking
intermittent Aleve. On the day of her arthroscopy she was given 2 g of cefazolin. She states that after the OR she went home and she was feeling fine from a knee standpoint. She was alternating Tylenol 1 g and ibuprofen 400 to 600 mg every 3
hours. She never exceed 4 g of Tylenol in a 24-hour period. To take a max dose of 4 doses of ibuprofen a day. She was also on aspirin 81 mg daily. She was also on oxycodone postoperatively. And would use medical marijuana for pain control. Her
last bowel movement was a week ago. She states that she was not eating much. She states that on Monday she developed abdominal discomfort above her bellybutton that she describes as sharp, intermittent, worse with breathing in across her upper
abdomen associated with nausea without any vomiting. She is able to pass flatus. She denies any fevers at home however on presentation here she had a temperature of 99.1 with a Tmax of 100.3 on 06/09/2025 at 1718. Patient was started on Zosyn. She
does not have a leukocytosis. Her white count was 6.0, today is 5.9. Hemoglobin is currently 11.8, hematocrit 35.7, platelets 204, MCV 91.5, sodium 138, potassium 3.7, chloride 108, CO2 24, BUN 13, creatinine 0.7, glucose 83, total bilirubin 0.9,
AST 106 (down from 310), ALT 226 (down from 350), alk phos 101 (down from 121), triglycerides 102, lipase 45. Lactic acid 0.8
Past Medical History
Past Medical History: Other (Hypothyroidism, psoriasis, melanoma, hypertension, colon cancer, constipation, osteoarthritis)
Past Surgical History: Other (Total thyroidectomy, left axillary lymph node resection, sigmoidectomy, incisional hernia repair, left knee arthroscopy, Port Insertion/removal, Melanoma excision)
Social History
Tobacco: Non-Smoker
Alcohol: Occasional
Drug: Marijuana
Personal: Single
Living: Alone
Employment: Retired
Family History
Family History: Other (Father pancreatic cancer)
Allergies / Home Medications
Allergy/AdvReac Type Severity Reaction Status Date / Time
Penicillins Allergy Rash as a Verified 06/06/25 16:16
child
�Medication �Instructions �Recorded
Medical Marijuana 1 cap PO HS Mental Health/Anxiety 05/30/25
aspirin 81 mg tablet 81 mg PO HS Blood Clot 05/30/25
Prevention/Tx
lisinopril 20 1 tab PO HS Blood Pressure 05/30/25
mg-hydrochlorothiazide 25 mg tablet
loratadine 10 mg tablet (Claritin) 10 mg PO HS Allergies 05/30/25
rosuvastatin 10 mg tablet (Crestor) 10 mg PO HS High Cholesterol 05/30/25
levothyroxine 75 mcg tablet 75 mcg PO DAILY Thyroid 06/09/25
(Synthroid)
Review of Systems
-
All other systems: A 12 pt ROS was Negative except as stated above in HPI
Vital Signs
Temp Pulse Resp BP Pulse Ox
99.3 F 69 18 141/64 92
06/10/25 15:32 06/10/25 15:32 06/10/25 15:32 06/10/25 15:32 06/10/25 15:32
Physical Exam
Exam
General: No Apparent Distress
HEENT: Anicteric
Respiratory: Clear (Anterior)
Cardiac: Regular Rhythm
GI: Soft, Non Distended, Normal Bowel Sounds and Tender (Right upper and lower abdomen, mid upper abdomen)
Musculoskeletal: No Edema
Skin: Warm and Dry
Neuro: AO x 3
Psych: Calm
Results
WBC 5.9 10^3/uL (4.8-10.8) 06/10/25 06:06
Hgb 11.8 g/dL (12.0-16.0) L 06/10/25 06:06
Hct 35.7 % (37.0-47.0) L 06/10/25 06:06
MCV 91.5 fL (81.0-99.0) 06/10/25 06:06
Plt Count 204 10^3/uL (130-400) 06/10/25 06:06
Absolute Neuts (auto) 4.3 10^3/uL (1.4-6.5) 06/10/25 06:06
Sodium 138 mmol/L (135-145) 06/10/25 06:06
Potassium 3.7 mmol/L (3.5-5.1) 06/10/25 06:06
Chloride 108 mmol/L (98-107) H 06/10/25 06:06
Carbon Dioxide 24 mmol/L (22-30) 06/10/25 06:06
BUN 13 mg/dl (7-17) 06/10/25 06:06
Creatinine 0.7 mg/dL (0.6-1.0) 06/10/25 06:06
Calcium 8.6 mg/dl (8.4-10.2) 06/10/25 06:06
Total Bilirubin 0.9 mg/dl (0.2-1.3) 06/10/25 06:06
AST 106 U/L (14-36) H 06/10/25 06:06
ALT 226 U/L (0-35) H 06/10/25 06:06
Alkaline Phosphatase 101 U/L (38-126) 06/10/25 06:06
Lipase 45 U/L (23-300) 06/09/25 13:11
Diagnostic Image Results:
CXR:
Blunted appearance of the lateral right costophrenic sulcus, possibly due to a tiny effusion.
CT PE/Abd/Pelvis:
IMPRESSION:
1. No central pulmonary embolus.
2. Small bilateral pleural effusions with adjacent atelectasis.
3. There is mild pericolonic stranding suggestive of mild colitis. Mild colonic stool burden.
4. Mild chronic compression deformity of the L3 vertebral body.
Abd US:
IMPRESSION:
Likely biliary sludge without sonographic findings suggestive of acute cholecystitis.
Mild hepatic steatosis.
MRI Abd with MRCP:
IMPRESSION: Small bilateral pleural effusions, right greater than left.
Small amount of ascites is seen in the visualized abdomen, adjacent to the liver and spleen and in the paracolic gutters. There is also a small amount of edema in the mesentery, most prominently in the left upper quadrant. Etiology of this
ascites/edema is uncertain.
Gallbladder is slightly distended with no evidence for gallstones. No secondary findings to suggest acute cholecystitis. There is no evidence for biliary ductal dilation, with no evidence of bile duct calculus.
Pancreatic duct appears within normal limits by MRCP.
Dextroconvex scoliosis. Chronic compression deformity of the L3 vertebral body.
Prior GI Procedures:
EGD:
Colonoscopy: Sigmoidoscopy 1 Week Ago [facility] 'normal'. Records unavailable to us
Assessment / Plan
-
69-year-old female with past medical history of hypothyroidism status post total thyroidectomy, psoriasis, melanoma (left axillary lymph node resection), hypertension, colon cancer diagnosed 2017 status post sigmoid resection and chemotherapy,
constipation, incisional hernia repair, osteoarthritis with left knee arthroscopy 06/06/2025 who presents to the emergency room with upper abdominal discomfort worse with taking a deep breath. We are asked to evaluate for the same. Pain started after
1 week history of no bowel movement, also initiation of NSAIDs including ibuprofen 400 to 600 mg 4 times a day in addition to aspirin 81 mg daily without eating. Elevated transaminases that are now trending down. Baseline unknown. Started 4 g of
Tylenol daily only for couple days. Did have periods of hypotension during OR 06/06/2025 BP min 76/50 also with heart rate going down to 46 requiring use of ephedrine. Use of cefazolin preop as well. Chronic underlying constipation with Yadkin stool
scale #1 type bowel movements to begin with now without bowel movement for 1 week in the presence of narcotic use. Also with CT imaging of stool burden in colon.
Impression:
Upper abd pain
Elevated transaminases
Constipation
Hx colon cancer s/p sigmoid resection with recent sigmoidoscopy at [facility]
Plan:
-Minimize narcotics
-Ok for clear liquids
-Check viral hepatitis
-Trend LFTs
-Pantoprazole 40 mg IV BID
-Start Miralax BID
-Dulcolax 10 mg daily
-Further recommendations to be forthcoming.
-
-
Thank you for consultation and allowing me to participate in the patient's care. Please call the highway commissioner GI physician during the after hours with any questions or concerns.
[2025-06-10] MEDS: MIRALAX 17 GRAMS PO (19:51)
[2025-06-10] MEDS: HEPARIN SC (19:53)
[2025-06-10 23:55] VITALS: BP 140/72
[2025-06-11] MEDS: ZOSYN 50 IV (01:12)
[2025-06-11] MEDS: LR 1000 IV (02:36)
[2025-06-11] MEDS: SYNTHROID 75 MCG PO (06:19)
[2025-06-11 07:11] LABS: Hematocrit 35.2 % (37.0-47.0); Hemoglobin 11.8 g/dL (12.0-16.0); Mean Corp Hgb Conc. 33.5 g/dL (33.0-37.0); Mean Corpuscular Volume 88.7 fL (81.0-99.0); Nucleated Red Blood Cells % 0 %; Platelet Count 215 10^3/uL (130-400); Red Cell Dist. Width 12.2 % (11.5-14.5)
[2025-06-11 07:25] VITALS: BP 143/73
[2025-06-11 08:08] LABS: ALT (SGPT) 161 U/L (0-35); AST (SGOT) 55 U/L (14-36); Albumin 3.5 g/dl (3.5-5.0); Alkaline Phosphatase 117 U/L (38-126); Blood Urea Nitrogen 12 mg/dl (7-17); Calcium 8.9 mg/dl (8.4-10.2); Carbon Dioxide 27 mmol/L (22-30); Chloride 106 mmol/L (98-107); Estimated Creatinine Clearance 79 ml/min; Glucose 101 mg/dl (70-99); Potassium 3.8 mmol/L (3.5-5.1); Sodium 138 mmol/L (135-145); Total Protein 5.9 g/dl (6.3-8.2); eGFR > 60.00
--- NOTE | 2025-06-11 08:42 | W.PN.HOSP.TC ---
Today's Communication/Plan
-
Advance diet
Stop antibiotics
Stop IV fluids
Stop opiates
Assessment / Plan
Assessment / Plan
Gen-AAOx3, NAD
HEENT-NC, AT, anicteric, clear oral mm
Neck-supple
CV-reg, no M, +S1/S2
Lungs-clear B/L
Abd-soft, NT, ND
Ext-no edema
Musculoskeletal-no cyanosis, clubbing
Skin-warm and dry
Neuro-grossly non-focal
Psych-calm, cooperative
Abdominal pain -suspect due to constipation after recent bowel prep and sigmoidoscopy procedure last week. Last bowel movement prior to admission was 9 days ago.
Abdominal pain improved overnight with multiple bowel movements. MRCP negative for biliary disease. No evidence of sepsis. Stop antibiotics. Stop IV fluids.
Advance diet to regular. Stop opiates.
Elevated transaminases -unclear etiology. Viral hepatitis panel pending. Labs are improving.
Essential hypertension -stable.
History of colon cancer -involving sigmoid colon, resected and treated with chemotherapy 2016.
Hypothyroidism -with history of total thyroidectomy. Continue levothyroxine. Check TSH.
Hyperlipidemia -hold Crestor for elevated transaminases.
Hx Melanoma -on her back, resected.
Psoriasis
Full code
Dispo -possible discharge later today if tolerates diet.
Anticipated Discharge: Today
Subjective/Interval History
-
Date of Service: June 11, 2025
Patient seen and examined. Overall feeling better with less abdominal pain. Had multiple bowel movements last night.
Objective Data
-
Labs:
Laboratory Results
06/11/25
06:02
WBC 5.8
Hgb 11.8 L
Hct 35.2 L
Plt Count 215
Sodium 138
Potassium 3.8
Chloride 106
Carbon Dioxide 27
BUN 12
Creatinine 0.7
Glucose 101 H
Calcium 8.9
Total Bilirubin 0.9
AST 55 H
ALT 161 H
Alkaline Phosphatase 117
Vital Signs:
Vital Signs
Temp Pulse Resp BP Pulse Ox
98.8 F 72 18 143/73 97
06/11/25 07:25 06/11/25 07:25 06/11/25 07:25 06/11/25 07:25 06/11/25 07:25
I&O
06/10/25 06/11/25 06/12/25
06:59 06:59 06:59
Intake Total 350 / 350 1040 / 1040
Balance 350 / 350 1040 / 1040
Review of Systems
-
History Source: Patient
All other systems: Reviewed and negative
[2025-06-11] MEDS: ZESTRIL 20 MG PO (08:53)
[2025-06-11] MEDS: DULCOLAX 10 MG PO (08:53)
[2025-06-11] MEDS: MIRALAX 17 GRAMS PO (08:54)
[2025-06-11] MEDS: NSS (PRESERVATIVE FREE) IV (08:55)
[2025-06-11] MEDS: PROTONIX IV IV (08:55)
[2025-06-11] MEDS: HEPARIN SC (09:00)
[2025-06-11] MEDS: ZOSYN IV (09:08)
[2025-06-11 09:43] LABS: TSH 2.26 uIU/ml (0.47-4.68)
--- NOTE | 2025-06-11 10:17 | W.PN.GI.CBS2 ---
Addendum entered and electronically signed by Maribel Matos MD 06/11/25 13:59:
I saw and examined the patient.
The RECONSTRUCTIVE DENTIST or PA's note was reviewed and I agree with the note.
Comment: Patient reports that she has had multiple soft to loose stool after MiraLAX and Senokot and abdominal discomfort is much improved. No nausea or vomiting. Tolerating low residue diet.
No fevers or chills.
- Elevated LFTs, unclear etiology, currently transaminases trending down with normal total bilirubin and alkaline phosphatase. Hepatitis serologies pending.
On ultrasound, likely biliary sludge, fatty liver noted and MRI/MRCP showed slightly distended gallbladder without any stones or wall thickening. Normal pancreatic duct.
Discussed with patient that she should follow-up with her primary GI at [facility] and repeat LFTs in 2 to 4 weeks. If she has any epigastric/right upper quadrant pain, need to consider evaluation for gallbladder disease.
Need to follow-up with them for fatty liver as well.
-Constipation
She reports some chronic constipation and was told by her GI at [facility] to start MiraLAX 1 capful every other day which patient has not done.
I explained to the patient that she should be on a bowel regimen after discharge and she is agreeable to that. She wants to take MiraLAX 1 capful every other day and see how it works for her bowels.
-Continue PPI for now given she was taking aspirin and NSAIDs together after her left knee arthroscopy
Once she is off the NSAIDs, she could taper PPI follow-up with her primary GI as well.
Original Note:
Today's Communication / Plan
-
As per plan
Assessment / Plan
-
69-year-old female with past medical history of hypothyroidism status post total thyroidectomy, psoriasis, melanoma (left axillary lymph node resection), hypertension, colon cancer diagnosed 2017 status post sigmoid resection and chemotherapy,
constipation, incisional hernia repair, osteoarthritis with left knee arthroscopy 06/06/2025 who presents to the emergency room with upper abdominal discomfort worse with taking a deep breath. We are asked to evaluate for the same. Pain started after
1 week history of no bowel movement, also initiation of NSAIDs including ibuprofen 400 to 600 mg 4 times a day in addition to aspirin 81 mg daily without eating. Elevated transaminases that are now trending down. Baseline unknown. Started 4 g of
Tylenol daily only for couple days. Did have periods of hypotension during [facility] 06/06/2025 BP min 76/50 also with heart rate going down to 46 requiring use of ephedrine. Use of cefazolin preop as well. Chronic underlying constipation with Anderson stool
scale #1 type bowel movements to begin with now without bowel movement for 1 week in the presence of narcotic use. Also with CT imaging of stool burden in colon.
Impression:
Upper abd pain-> improved, most likely secondary to stool burden/constipation
Elevated transaminases-> improving
Constipation-> improving with bowel regimen
Hx colon cancer s/p sigmoid resection with recent sigmoidoscopy at [facility]
Plan:
- Await viral hepatitis studies, can follow as an outpatient. Patient has GI at [facility] [place].
- Recommend LFTs in 2 weeks with outpatient GI or PCP.
- Advance solid diet/low-fat.
- Follow-up with PCP/GI for fatty liver
- Recommend bowel regimen as an outpatient.
- Continue pantoprazole twice daily for at least 1 month given NSAID use then can decrease down to daily.
Subjective
Subjective
Date of Service: June 11, 2025
Abdominal discomfort much improved after evacuation of bowels x 5. Tolerating diet, awaiting for solid diet. Passing significant amount of flatus now. With loose bowel movement the last time. Would like to decrease her MiraLAX now that she is
evacuating bowels. LFTs trending down. Viral hepatitis studies pending. Antibiotics, IV fluids and opiates stopped.
Objective
Data Reviewed
Laboratory Data:
Laboratory Results
06/11/25 06:02
06/11/25 06:02
Laboratory Results
Total Bilirubin 0.9 mg/dl (0.2-1.3) 06/11/25 06:02
AST 55 U/L (14-36) H 06/11/25 06:02
ALT 161 U/L (0-35) H 06/11/25 06:02
Alkaline Phosphatase 117 U/L (38-126) 06/11/25 06:02
Lipase 45 U/L (23-300) 06/09/25 13:11
Vital Signs and I&O:
Vital Signs
Temp Pulse Resp BP Pulse Ox
98.8 F 72 18 143/73 97
06/11/25 07:25 06/11/25 08:53 06/11/25 07:25 06/11/25 08:53 06/11/25 07:25
I&O
06/10/25 06/11/25 06/12/25
06:59 06:59 06:59
Intake Total 350 / 350 1040 / 1040
Balance 350 / 350 1040 / 1040
Physical Exam
Physical Exam
HEENT: Anicteric
Cardiology: Normal Sinus Rhythm
Pulmonary: Clear (Anterior)
GI: Soft, Non Distended, Non Tender and Normal Bowel Sounds
Neuro: Non Focal
--- NOTE | 2025-06-11 13:52 | W.DS.TRANS ---
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
-
Discharge Instructions:
Discharge Diagnosis/Procedures Severe constipation
Diet Regular
Activity As tolerated
Driving Restrictions As prior to admission
Bathing Restrictions None
Instructions:
Stand-Alone Forms:
Changes to Home Medications: No
Discharge Medications:
DC Medications w/original date entered in [facility]
aspirin 81 mg tablet 81 mg PO HS Blood Clot Prevention/Tx 05/30/25
lisinopril 20 mg-hydrochlorothiazide 25 mg tablet 1 tab PO HS Blood Pressure 05/30/25
loratadine 10 mg tablet (Claritin) 10 mg PO HS Allergies 05/30/25
rosuvastatin 10 mg tablet (Crestor) 10 mg PO HS High Cholesterol 05/30/25
levothyroxine 75 mcg tablet (Synthroid) 75 mcg PO DAILY Thyroid 06/09/25
pantoprazole 40 mg tablet,delayed release (Protonix) 40 mg PO BID #60 tabs 06/11/25
polyethylene glycol 3350 17 gram oral powder packet 17 g PO BID #0 ea 06/11/25
Home Medication Changes
Pending Results: No
--- NOTE | 2025-06-11 15:30 | CM ---
MD entered order for discharge.
Spoke with patient she said she was ready for discharge.
Tamia will drive her home.
Offered VN she delcine dneed.
[facility]An Home no needs
[2025-06-11 15:32] VITALS: BP 144/73
[2025-06-12 19:10] LABS: Hepatitis B Surface Antigen Negative (Negative)
[2025-06-12 19:27] LABS: Hepatitis C Antibody Negative (Negative)
== END 2025-06-11 15:53 | disposition home or self-care (01) | DRG 392 ==
LOC: 4 EAST ACU 20:48
PROVIDERS: Clinical Nurse Specialist Family Health; Physician Assistant; ADMITTING PHYSICIAN Internal Medicine; ATTENDING PHYSICIAN Hospitalist; CONSULT PHYSICIAN Internal Medicine Gastroenterology; CONSULT PHYSICIAN Surgery; EMERGENCY PHYSICIAN Student in an Organized Health Care Education/Training Program; FAMILY PHYSICIAN Physician Assistant Medical
DX: K59.00 Constipation, unspecified (principal); R74.01 Elevation of levels of liver transaminase levels; E89.0 Postprocedural hypothyroidism; E78.00 Pure hypercholesterolemia, unspecified; F41.9 Anxiety disorder, unspecified; I10 Essential (primary) hypertension; L40.9 Psoriasis, unspecified; K76.0 Fatty (change of) liver, not elsewhere classified; Z92.21 Personal history of antineoplastic chemotherapy; Z90.49 Acquired absence of other specified parts of digestive tract; Z88.0 Allergy status to penicillin; Z85.820 Personal history of malignant melanoma of skin; Z85.038 Personal history of other malignant neoplasm of large intestine; Z80.8 Family history of malignant neoplasm of other organs or systems; Z80.0 Family history of malignant neoplasm of digestive organs; Z79.899 Other long term (current) drug therapy; Z79.890 Hormone replacement therapy; Z79.82 Long term (current) use of aspirin
CPT/HCPCS: 71046; 71275; 74177; 74181; 76700; 80053; 80061; 83605; 83690; 84443; 85025; 86706; 86803; 87340; 93005; 96374; 99285; Q9967

== ENCOUNTER → 2025-09-08 10:01 | Outpatient (REF) | payer MEDICARE, OTHER, SELFPAY | LOC: HWWDC 10:01 | PROVIDERS: ATTENDING PHYSICIAN Physician Assistant Medical | DX: Z12.31 Encounter for screening mammogram for malignant neoplasm of breast (principal) | CPT/HCPCS: 77063; 77067 ==